=== PATIENT | female | born 1965 | race Caucasian/White ===

== ENCOUNTER 2017-01-19 15:12 | Emergency (ER) | payer OTHER ==
[~2017-01-19] VITALS: Wt 68.9 kg
[2017-01-19] MEDS ORDERED: DIAZEPAM 5 MG TAB PO ONE (17:00)
[2017-01-19] MEDS ORDERED: KETOROLAC 60 MG INJ IM STA (17:00)
--- NOTE | 2017-01-19 17:06 | ERD ---
ER Documentation Chief Complaint Date/Time DATE: 01/19/17 TIME: 17:04 Chief Complaint NON TRAUMATIC LOW BACK PAIN FOR 3 WKS. UNABLE TO BEND. HPI This is a 51-year-old female presenting to the emergency department complaining of left lower back pain for the past 3 weeks that has worsened today. Patient is tearful and rates the pain 10 out of 10. Patient states that he she is unable to bend due to the pain. She states that she took Advil yesterday without any relief. She denies any trauma. Denies any saddle anesthesia, bowel or bladder continence. ROS All systems reviewed and are negative except as per history of present illness. Medications Home Meds Active Scripts Diazepam* (Valium*) 5 Mg Tablet, 5 MG PO Q8, #10 TAB Prov:RIKKI PINON PA-C 01/19/17 Naproxen* (Naproxen*) 500 Mg Tablet, 500 MG PO BID Y for PAIN, #30 TAB Prov:RIKKI PINON PA-C 01/19/17 Allergies Allergies: Coded Allergies: No Known Allergy (Unverified , 01/19/17) Physical Exam Vitals Vital Signs Date Time Temp Pulse Resp B/P Pulse Ox O2 Delivery O2 Flow Rate FiO2 01/19/17 18:30 98.6 87 17 152/80 99 Room Air 01/19/17 15:20 98.4 101 21 162/85 99 Physical Exam GENERAL: WD/WN, in no apparent distress, non-toxic appearing HENT: NC/AT EYES: Conjunctiva normal NECK: Supple PULM: Normal labored breathing CV: Good capillary refill GI: Non-distended, no guarding BACK: no deformities noted, normal spinal curvature, TTP on the left lower lumbar region, mild tender on spine midline, full range of motion but patient has pain EXT: No clubbing, cyanosis, or edema NEURO: Moves on all fours, sensation intact, normal gait SKIN: intact PSYCH: Normal mood Results 24 hrs Laboratory Tests Test 01/19/17 17:18 Bedside Urine Blood 2+ Bedside Urine Glucose (UA) Negative Bedside Urine Ketones (LAB) Negative Bedside Urine Leukocyte Esterase (L Negative Bedside Urine Nitrite (LAB) Negative Bedside Urine Protein (LAB) 1+ Bedside Urine pH (LAB) 8.5 Current Medications Medications (Trade) Dose Ordered Sig/Irvin Route PRN Reason Start Time Stop Time Status Last Admin Dose Admin Ketorolac Tromethamine (Toradol) 60 mg ONCE STAT IM 01/19/17 17:00 01/19/17 17:02 DC 01/19/17 17:17 Diazepam (Valium) 10 mg ONCE ONCE PO 01/19/17 17:00 01/19/17 17:02 DC 01/19/17 17:17 Procedures/MDM This is a 51-year-old female presenting to the emergency department complaining of left lower back pain for the past 3 weeks that has worsened today. Patient presents to the ER with lumbar back pain, low suspicion for spinal abscess, vertebral fracture, cauda equina syndrome, spinal stenosis due to physical examination. Lumbar x-ray was done and radiologist stated: Moderate dextroscoliosis of the lower lumbar spine with associated degenerative changes. There is also mild right lateral subluxation of L4 on L5. I have discussed these findings with the patient, patient is suitable to follow- up with her primary care physician tomorrow for further action management and referral to see orthopedics. I discussed with her to return to the ER for any worsening signs or symptoms. In the ED patient was given Toradol and Valium, I have reassessed patient and she is significant felt better. Patient is neurovascularly intact. Prescriptions naproxen and Valium was given to patient, discussed to return to the ED if not improving as expected or follow -up with a primary care physician. Patient understood and agreed with this plan. Departure Diagnosis: Primary Impression: Back pain Condition: Stable RIKKI PINON PA-C Jan 19, 2017 17:06
[2017-01-19 17:16] LABS: URINE BLOOD (Dip) POC 2+ (NEGATIVE)
[2017-01-19] MEDS ORDERED: NAPR-688 PO (17:20)
[2017-01-19] MEDS ORDERED: DIAZ-90 PO (17:20)
--- NOTE | 2017-01-19 18:00 | RADRPT ---
PROCEDURE: Lumbar spine series CLINICAL INDICATION: Back pain TECHNIQUE: 4 views of the lumbar spine are available for review COMPARISON: None available FINDINGS: The normal lumbar lordosis is preserved. There is moderate dextroscoliosis of the lumbar spine. Th ere is mild right lateral listhesis of L4 on L5 with approximately 6 mm of displacement. Alignment is otherwise intact. No acute fracture or dislocation is seen. Vertebral body heights are well maint ained. There is mild disk height loss at L3-L4 and L4-L5 with associated lateral osteophytes.. Pa raspinous soft tissues are grossly unremarkable. IMPRESSION: 1. Moderate dextroscoliosis of the lower lumbar spine with associated degenerative changes. There is also mild right lateral subluxation of L4 on L5. RPTAT: [facility] .Neil Kang MD, Date Time Electronically viewed and signed by .Neil Kang MD, on 01/19/2017 18:00 .B/
[2017-01-19 18:30] VITALS: BP 152/80; PULSE 87; RESP 17; TEMP 98.6
== END 2017-01-19 18:32 | disposition home or self-care (01) ==
LOC: FTE 15:12
DX: M54.5 Low back pain (principal); I10 Essential (primary) hypertension; E11.9 Type 2 diabetes mellitus without complications
CPT/HCPCS: 72100; 81003; 96372; J1885; Z7502; Z7610